=== PATIENT | male | born 1995 ===

== ENCOUNTER 2021-02-12 20:49 | Outpatient (CLI) | payer OTHER | END 2021-02-12 20:51 | disposition home or self-care (01) | LOC: PPH VACUNA 20:49 | DX: Z23 Encounter for immunization (principal) ==

== ENCOUNTER 2021-03-06 16:07 | Outpatient (CLI) | payer OTHER | END 2021-03-06 16:17 | disposition home or self-care (01) | LOC: PPH VACUNA 16:07 | DX: Z23 Encounter for immunization (principal) ==